=== PATIENT | male | born 1995 | race Caucasian/White ===

== ENCOUNTER 2019-05-25 19:10 | Emergency (ER) | payer OTHER ==
[~2019-05-25] VITALS: Ht 170.2 cm; Wt 81.6 kg
== END 2019-05-25 20:07 | disposition home or self-care (01) ==
LOC: ER 19:10
DX: F06.4 Anxiety disorder due to known physiological condition (principal)

== ENCOUNTER 2019-08-26 16:03 | Emergency (ER) | payer OTHER ==
[~2019-08-26] VITALS: Ht 172.7 cm; Wt 79.4 kg
== END 2019-08-26 19:27 | disposition home or self-care (01) ==
LOC: ER 16:03
DX: R06.02 Shortness of breath (principal); K80.50 Calculus of bile duct without cholangitis or cholecystitis without obstruction; F06.4 Anxiety disorder due to known physiological condition